=== PATIENT | male | born 1995 | race African-American/Black ===

== ENCOUNTER 2019-02-17 19:26 | Emergency (ER) | payer OTHER ==
[2019-02-17] MEDS: LIDOCAINE 1% (MPF) 5 ML VIAL INJ (20:46)
[2019-02-17] MEDS: AZITHROMYCIN 500 MG TAB PO (20:46)
[2019-02-17] MEDS: CEFTRIAXONE 250 MG INJ IM (20:46)
[2019-02-17 20:57] LABS: ADD UMIC NO; UR ASCORBIC ACID NEGATIVE (NEGATIVE); UR BILIRUBIN (Dip) NEGATIVE (NEGATIVE); UR BLOOD (Dip) NEGATIVE (NEGATIVE); UR CLARITY CLEAR (CLEAR); UR COLOR YELLOW (YELLOW); UR GLUCOSE (Dip) NEGATIVE (NEGATIVE); UR KETONES (Dip) TRACE mg/dL (NEGATIVE); UR LEUKOCYTE ESTERASE (Dip) NEGATIVE Leu/ul (NEGATIVE); UR NITRITE (Dip) NEGATIVE (NEGATIVE); UR SPECIFIC GRAVITY (Dip) 1.025 (1.003-1.030); UR TOTAL PROTEIN (Dip) NEGATIVE (NEGATIVE); UR UROBILINOGEN (Dip) NEGATIVE (NEGATIVE)
== END 2019-02-17 21:02 | disposition home or self-care (01) ==
LOC: FTE 19:26
DX: A56.8 Sexually transmitted chlamydial infection of other sites (principal)
CPT/HCPCS: 81003; 87591; 96372; 99284-25